=== PATIENT | female | born 1935 | race Caucasian/White ===

== ENCOUNTER 2017-02-10 09:58 | Emergency (ER) | payer OTHER ==
[~2017-02-10] VITALS: Ht 157.5 cm; Wt 58.1 kg
[2017-02-10] MEDS ORDERED: AZOPT10 ML OPH (10:37)
[2017-02-10] MEDS ORDERED: BEXAROTENE PO (10:37)
[2017-02-10] MEDS ORDERED: ATENOLOL50 M1 PO (10:38)
[2017-02-10] MEDS ORDERED: LUMIGAN2.5 ML OPH (10:38)
[2017-02-10] MEDS ORDERED: TIMOLOL MALEATE5 M4 OPH (10:38)
[2017-02-10] MEDS ORDERED: LEVOTHYROXINE50 MCG PO (10:38)
[2017-02-10] MEDS ORDERED: HYDROCHLOROTH12.5 M3 PO (10:39)
[2017-02-10] MEDS ORDERED: TRIAMCINOLONE A15 G1 TOP (10:39)
[2017-02-10] MEDS ORDERED: ASPIRIN81 M4 PO (10:40)
--- NOTE | 2017-02-10 10:44 | ED MVC/FALL/TRAUMA COMPLAINT ---
History of Present Illness General Chief Complaint: Fall Stated Complaint: LAC TO BACK OF HEAD, S/P FALL Source: patient, family Exam Limitations: no limitations Vital Signs & Intake/Output Vital Signs & Intake/Output Vital Signs Date Time Temp Pulse Resp B/P B/P Pulse O2 O2 Flow FiO2 Mean Ox Delivery Rate 02/10 1222 97.9 66 18 148/68 97 Room Air 02/10 1012 97.4 67 16 182/83 97 Room Air Allergies Coded Allergies: Sulfa (Sulfonamide Antibiotics) (Intermediate, RASH 02/10/17) azithromycin (Intermediate, RASH 02/10/17) nitrofurantoin (Intermediate, RASH 02/10/17) amoxicillin (RASH 02/10/17) cephalexin (RASH 02/10/17) hydroxychloroquine (From PLAQUENIL) (RASH 02/10/17) norfloxacin (From NOROXIN) (UNKNOWN 02/10/17) Uncoded Allergies: EPINPLRINA (UNKNOWN 02/10/17) Reconcile Medications Aspirin (Aspirin*) 81 MG TAB.CHEW 1 TAB PO DAILY HEART HEALTH (Reported) Atenolol 50 MG TABLET 1 TAB PO DAILY HEART (Reported) Bexarotene 75 MG CAPSULE 1 CAP PO Tuesday LYMPHOMA (Reported) Bimatoprost (Lumigan) 0.01 % DROPS 1 GTT OPH QPM GLAUCOMA (Reported) Brinzolamide (Azopt) 1 % DROPS.SUSP 1 GTT OPH BID GLAUCOMA (Reported) Hydrochlorothiazide 12.5 MG CAPSULE 1 CAP PO DAILY WATER RETENTION (Reported) Levothyroxine Sodium 50 MCG TABLET 1 TAB PO DAILY AC THYROID (Reported) Timolol Maleate 0.5 % DROPS 1 GTT OPH BID GLAUCOMA (Reported) Triamcinolone Acetonide 0.1 % CREAM..G. 1 CAESAR TOP DAILY SKIN (Reported) Triage Note: PT STATES SHE FELL HITTING HER HEAD ON THE CONCRETE. PT STATES SHE MISSED STEP. PT DENIES BEING ON BLOOD THINNERS. -LOC Triage Nurses Notes Reviewed? yes Onset: Abrupt Duration: hour(s): Timing: single episode today Severity: moderate Injuries/Fall Location: head Method of Injury: fall Loss of Consciousness: no loss of consciousness No Modifying Factors: none HPI: 81-year-old female presents to emergency department following a fall earlier today. Patient states that she was walking up a concrete ramp when she misstepped and fell backwards landing on her posterior head. She did not lose consciousness or blackout. She is complaining of mild pain to posterior scalp where she has a cut. She normally walks with a cane and was using nazario today. She denies syncope, lightheadedness, dizziness, chest pain, dyspnea, palpitations, headache, nausea, vomiting, visual changes. Today she was in her normal state of health, she ate breakfast, she drank liquids this morning, she is not on any blood thinners. The patient denies recent falls, states her last fall was over a year ago. The patient is unsure of her last tetanus vaccine. (ROXANA SHANNON PA-C) Past History Travel History Traveled to [place] past 21 day No Medical History Any Pertinent Medical History? see below for history Neurological: NONE EENT: macular degeneration Cardiovascular: hypertension Respiratory: NONE Gastrointestinal: NONE Hepatic: NONE Renal: NONE Musculoskeletal: osteoarthritis Psychiatric: NONE Endocrine: hypothyroidism Cancer(s): LYMPHOMA Surgical History Surgical History: non-contributory Psychosocial History What is your primary language Danish Tobacco Use: Quit >30 days ago ETOH Use: denies use Illicit Drug Use: denies illicit drug use Family History Hx Contributory? No (ROXANA SHANNON PA-C) Review of Systems Review of Systems Constitutional: Reports: no symptoms. Eyes: Reports: no symptoms. Ears, Nose, Throat, Mouth: Reports: no symptoms. Respiratory: Reports: no symptoms. Cardiovascular: Reports: no symptoms. Gastrointestinal/Abdominal: Reports: no symptoms. Genitourinary: Reports: no symptoms. Musculoskeletal: Reports: see HPI. Skin: Reports: see HPI. Neurological/Psychological: Reports: no symptoms. All Other Systems: Reviewed and Negative (ROXANA SHANNON PA-C) Physical Exam Physical Exam General Appearance: well developed/nourished, no apparent distress, alert, awake Head: superificial abbrasions to posterior scalp Eyes: Left: other (conjuntiva injected). Bilateral: EOMI, abnormal pupil (surgical pupils bilterally). Ears, Nose, Throat, Mouth: hearing grossly normal, moist mucous membrane, Tympanic normal Neck: normal inspection, supple, full range of motion, normal alignment, no midline tenderness Respiratory: normal breath sounds, chest non-tender, no respiratory distress, lungs clear Cardiovascular: regular rate/rhythm Gastrointestinal: normal bowel sounds, soft, non-tender, no organomegaly Back: normal inspection, normal range of motion, no vertebral tenderness Extremities: normal range of motion, no tenderness Neurologic/Psych: no motor/sensory deficits, awake, alert, oriented x 3, manufacturer agent II- XII nml as tested (except surgical pupil OU) Skin: 3x4 area of small abrasions on posterior scalp Core Measures ACS in differential dx? No Severe Sepsis Present: No Septic Shock Present: No (ROXANA SHANNON PA-C) Progress Differential Diagnosis: C/T/L spine injury, ext injury, ICH, pelvis injury, pnemothorax, spinal cord injury, electrolyte abnormality Plan of Care: Orders Procedure Date/time Status COMPREHENSIVE METABOLIC PANEL 02/10 1033 Complete CBC WITHOUT DIFFERENTIAL 02/10 1033 Complete Laboratory Tests 02/10/17 1118: Anion Gap 7, Estimated GFR > 60, BUN/Creatinine Ratio 21.4, Glucose 88, Calcium 9.4, Total Bilirubin 0.9, AST 38 H, ALT 42, Alkaline Phosphatase 95, Total Protein 7.8, Albumin 4.2, Globulin 3.6, Albumin/Globulin Ratio 1.2, CBC w Diff NO MAN DIFF REQ, RBC 4.52, MCV 92.1, MCH 31.2 H, RDW 13.2, MPV 7.8, Gran % 75.0 , Lymphocytes % 17.0 L, Monocytes % 6.9, Eosinophils % 0.7, Basophils % 0.4, Absolute Granulocytes 3.7, Absolute Lymphocytes 0.8 L, Absolute Monocytes 0.3, Absolute Eosinophils 0, Absolute Basophils 0, PUBS MCHC 33.8 Patient is sitting comfortably in bed. She has mild injected conjunctiva of the left eye which she states was present yesterday. She has slightly irregular fixed pupils with history of cataract and glaucoma surgery bilaterally. Remainder of exam she is neurologically intact without focal neurologic deficit. CT scans are pending. We will update her tetanus status today. The patient was discussed with Dr. Newman. The wound was irrigated with normal saline and Betadine and dressed with bacitracin and sterile dressing. 12:07 -discussed in detail the results of her lab work and CT imaging. The patient was walked by me down the hallway in the emergency department she is using her cane, she is steady on her feet, she feels comfortable walking on her own. The patient will follow-up with her primary care doctor tomorrow to discuss her low sodium level here in the emergency room. The patient will also follow-up with her program and research coordinator given foreign body detected and anterior chamber of left eye on CT scan. The patient was instructed on fluid restriction. The patient is in agreement with the plan of care. (SHIVA NELSON,ROXANA) Diagnostic Imaging: Viewed by Me: CT Scan. Discussed w/RAD: CT Scan. Radiology Impression: PATIENT: ORLANDO CAMPOS PRESENT AGE: 81 PATIENT ACCOUNT NO: [id number] : 34 LOCATION: [facility] ORDERING PHYSICIAN: ROXANA SHANNON PA-C SERVICE DATE: 02/10/17 EXAM TYPE: CAT - CT CERV SPINE WO IV CONTRAST; CT HEAD WO IV CONTRAST EXAMINATION: CT HEAD WITHOUT CONTRAST CT CERVICAL SPINE WITHOUT CONTRAST CLINICAL INFORMATION: 81- year-old female patient with trauma after falling. Laceration to posterior head. COMPARISON: CT the head on 04/09/2011. TECHNIQUE: Imaging was performed from the skull base to vertex without intravenous administration of contrast. In addition , helical noncontrast CT imaging was acquired through the cervical spine and source images were reviewed along with axial reconstructions and sagittal and coronal MPRs. Total exam dose-length product 885 mGy-cm FINDINGS: HEAD: No intracranial mass, hemorrhage, or midline shift is visualized. The ventricles and sulci are age-appropriate. However since the last exam, the ventricular system has increased in size. The bifrontal horn diameter measures 4.4 cm compared to 3.9 cm and the third ventricle measures 1.6 cm in width compared to 1.5 cm. Today, the ventricular system is concordant with the cortical sulci. Periventricular white matter hypoattenuation within both cerebral hemispheres can be attributed to microvascular disease. No extra-axial collections are identified. There is a scalp hematoma over the high parietal convexity to the left of midline. The paranasal sinuses and mastoid air cells are well aerated. The patient has had bilateral lens extractions as before. A foreign body is seen in the anterior chamber of the left eye. Again, there are arthritic changes involving both TMJs. CERVICAL SPINE: There is no evidence of acute cervical spine fracture. Vertebral bodies remain normal in height. There is no acute subluxation. There is mild anterolisthesis of C3 on C4 due to facet arthritis. Generalized disc space narrowing with marginal osteophytes involve the levels of C3-T7. Degenerative changes also involve the uncovertebral joints of the cervical spine. No pre- or paravertebral soft tissue abnormality is identified. Limited assessment of the lung apices demonstrates apical pleural thickening. Calcifications are present in the left lobe of the thyroid gland. IMPRESSION: 1. No acute intracranial pathology. 2. Ventricular megaly concordant with the cortical sulci indicating age-related atrophy. 3. Cervical spondylosis. 4. No CT evidence of acute cervical spine fracture or traumatic subluxation DICTATED BY: NEIL MARIN MD DATE/TIME DICTATED:02/10/171122 OPHTHALMOLOGY ASSISTANT: DEVEN DATE/TIME TRANSCRIBED:02/10/171122 CONFIDENTIAL, DO NOT COPY WITHOUT APPROPRIATE AUTHORIZATION. <Electronically signed in Other Vendor System> SIGNED BY: NEIL MARIN MD 02/10/17 1141, PATIENT: ORLANDO CAMPOS PRESENT AGE: 81 PATIENT ACCOUNT NO: [id number] : 34 LOCATION: [facility] ORDERING PHYSICIAN: ROXANA SHANNON PA-C SERVICE DATE: 02/10/17 EXAM TYPE: CAT - CT CERV SPINE WO IV CONTRAST; CT HEAD WO IV CONTRAST EXAMINATION: CT HEAD WITHOUT CONTRAST CT CERVICAL SPINE WITHOUT CONTRAST CLINICAL INFORMATION: 81-year-old female patient with trauma after falling. Laceration to posterior head. COMPARISON: CT the head on 04/09/2011. TECHNIQUE: Imaging was performed from the skull base to vertex without intravenous administration of contrast. In addition, helical noncontrast CT imaging was acquired through the cervical spine and source images were reviewed along with axial reconstructions and sagittal and coronal MPRs. Total exam dose- length product 885 mGy-cm FINDINGS: HEAD: No intracranial mass, hemorrhage, or midline shift is visualized. The ventricles and sulci are age-appropriate. However since the last exam, the ventricular system has increased in size. The bifrontal horn diameter measures 4.4 cm compared to 3.9 cm and the third ventricle measures 1.6 cm in width compared to 1.5 cm. Today, the ventricular system is concordant with the cortical sulci. Periventricular white matter hypoattenuation within both cerebral hemispheres can be attributed to microvascular disease. No extra-axial collections are identified. There is a scalp hematoma over the high parietal convexity to the left of midline. The paranasal sinuses and mastoid air cells are well aerated. The patient has had bilateral lens extractions as before. A foreign body is seen in the anterior chamber of the left eye. Again, there are arthritic changes involving both TMJs. CERVICAL SPINE: There is no evidence of acute cervical spine fracture. Vertebral bodies remain normal in height. There is no acute subluxation. There is mild anterolisthesis of C3 on C4 due to facet arthritis. Generalized disc space narrowing with marginal osteophytes involve the levels of C3-T7. Degenerative changes also involve the uncovertebral joints of the cervical spine. No pre- or paravertebral soft tissue abnormality is identified. Limited assessment of the lung apices demonstrates apical pleural thickening. Calcifications are present in the left lobe of the thyroid gland. IMPRESSION: 1. No acute intracranial pathology. 2. Ventricular megaly concordant with the cortical sulci indicating age-related atrophy. 3. Cervical spondylosis. 4. No CT evidence of acute cervical spine fracture or traumatic subluxation DICTATED BY: NEIL MARIN MD DATE/TIME DICTATED:02/10/171122 OPHTHALMOLOGY ASSISTANT:DEVEN DATE/ TIME TRANSCRIBED:02/10/171122 CONFIDENTIAL, DO NOT COPY WITHOUT APPROPRIATE AUTHORIZATION. <Electronically signed in Other Vendor System> SIGNED BY: NEIL MARIN MD 02/10/17 1147 (ROXANA SHANNON PA-C) Departure Departure Disposition: HOME OR SELF CARE Condition: Stable Clinical Impression Primary Impression: Fall Secondary Impressions: Hyponatremia, Scalp abrasion Referrals: SUZE RITCHIE,CHRISTOFER Wong (PCP/Family) Additional Instructions: Call Dr. Scott's office to inform them you that she wear here and results of your labs and imaging. Follow up in his office tomorrow to discuss your sodium level. Limit your intake of water until your appointment with Dr. Scott as this may further her sodium level. Tylenol or Motrin as needed for your pain. Remove dressing tomorrow, you may shower, no heavy scrubbing over your wound. There was no foreign body detected on today's exam however there is always the possibility that a foreign body remains. Return with any worsening symptoms or concerns, headache, nausea, vomiting, visual changes, fevers, chills, swelling around the wound. Call your program and research coordinator to make an appointment, inform them that a foreign body was detected on your CAT scan in the emergency department. Departure Forms: Customer Survey General Discharge Information (ROXANA SHANNON PA-C) PA/SENIOR TECHNICAL ARCHITECT Co-Sign Statement Statement: ED Attending supervision documentation- [X] I saw and evaluated the patient. I have also reviewed all the pertinent lab results and diagnostic results. I agree with the findings and the plan of care as documented in the PA's/SENIOR TECHNICAL ARCHITECT's documentation. [X] I have reviewed the ED Record and agree with the PA's/SENIOR TECHNICAL ARCHITECT's documentation. [] Additions or exceptions (if any) to the PAs/SENIOR TECHNICAL ARCHITECT's note and plan are summarized below: [] (MARLI RITCHIE,FAISAL Wong)
[2017-02-10 11:27] LABS: ABSOLUTE BASOPHIL COUNT 0 /CUMM (0.0-0.2); ABSOLUTE EOSINOPHIL COUNT 0 /CUMM (0.0-0.7); ABSOLUTE GRANULOCYTE CT 3.7 /CUMM (1.4-6.5); ABSOLUTE LYMPH COUNT 0.8 /CUMM (1.2-3.4); ABSOLUTE MONOCYTE COUNT 0.3 /CUMM (0.10-0.60); BASOPHIL % 0.4 % (0.0-2.0); EOSINOPHIL % 0.7 % (0-5); HEMATOCRIT 41.7 % (37-47); MEAN CORPUSCULAR HGB 31.2 PG (27.0-31.0); MEAN CORPUSCULAR HGB CONC 33.8 G/DL (33.0-37.0); MEAN CORPUSCULAR VOLUME 92.1 FL (81.0-99.0); MEAN PLATELET VOLUME 7.8 FL (7.4-10.4); PLATELET COUNT 191 /CUMM (130-400); RBC DISTRIBUTION WIDTH 13.2 % (11.5-14.5); RED BLOOD CELL CT 4.52 /CUMM (4.20-5.40)
--- NOTE | 2017-02-10 11:41 | CT SCAN REPORT ---
EXAMINATION: CT HEAD WITHOUT CONTRAST CT CERVICAL SPINE WITHOUT CONTRAST CLINICAL INFORMATION: 81-year-old female patient with trauma after falling. Laceration to posterior head. COMPARISON: CT the head on 04/09/2011. TECHNIQUE: Imaging was performed from the skull base to vertex without intravenous administration of contrast. In addition, helical noncontrast CT imaging was acquired through the cervical spine and source images were reviewed along with axial reconstructions and sagittal and coronal MPRs. Total exam dose-length product 885 mGy-cm FINDINGS: HEAD: No intracranial mass, hemorrhage, or midline shift is visualized. The ventricles and sulci are age-appropriate. However since the last exam, the ventricular system has increased in size. The bifrontal horn diameter measures 4.4 cm compared to 3.9 cm and the third ventricle measures 1.6 cm in width compared to 1.5 cm. Today, the ventricular system is concordant with the cortical sulci. Periventricular white matter hypoattenuation within both cerebral hemispheres can be attributed to microvascular disease. No extra-axial collections are identified. There is a scalp hematoma over the high parietal convexity to the left of midline. The paranasal sinuses and mastoid air cells are well aerated. The patient has had bilateral lens extractions as before. A foreign body is seen in the anterior chamber of the left eye. Again, there are arthritic changes involving both TMJs. CERVICAL SPINE: There is no evidence of acute cervical spine fracture. Vertebral bodies remain normal in height. There is no acute subluxation. There is mild anterolisthesis of C3 on C4 due to facet arthritis. Generalized disc space narrowing with marginal osteophytes involve the levels of C3-T7. Degenerative changes also involve the uncovertebral joints of the cervical spine. No pre- or paravertebral soft tissue abnormality is identified. Limited assessment of the lung apices demonstrates apical pleural thickening. Calcifications are present in the left lobe of the thyroid gland. IMPRESSION: 1. No acute intracranial pathology. 2. Ventricular megaly concordant with the cortical sulci indicating age-related atrophy. 3. Cervical spondylosis. 4. No CT evidence of acute cervical spine fracture or traumatic subluxation
[2017-02-10 12:22] VITALS: BP 148/68
== END 2017-02-10 12:23 ==
LOC: ERH 09:58
PROVIDERS: Physician Assistant
DX: S00.01XA Abrasion of scalp, initial encounter (principal); E87.1 Hypo-osmolality and hyponatremia; W19.XXXA Unspecified fall, initial encounter; Y93.01 Activity, walking, marching and hiking; Y92.9 Unspecified place or not applicable
CPT/HCPCS: 90471; 90714